=== PATIENT | male | born 1955 | race Caucasian/White ===

== ENCOUNTER 2024-01-28 17:16 | Emergency (ER) | payer SELFPAY ==
[~2024-01-28] VITALS: Ht 162.6 cm; Wt 76.3 kg
[2024-01-28 17:23] VITALS: PULSE 75; RESP 14; TEMP 98.4; O2SAT 97
[2024-01-28] MEDS ORDERED: ACTIFED (17:35)
== END 2024-01-28 20:15 | disposition home or self-care (01) ==
LOC: FSED 17:22
DX: S16.1XXA Strain of muscle, fascia and tendon at neck level, initial encounter (principal); S39.012A Strain of muscle, fascia and tendon of lower back, initial encounter; S40.011A Contusion of right shoulder, initial encounter; V43.52XA Car driver injured in collision with other type car in traffic accident, initial encounter; Y92.488 Other paved roadways as the place of occurrence of the external cause
CPT/HCPCS: 72125; 72131; 99283